=== PATIENT | female | born 1935 | race Hispanic/Latino ===

== ENCOUNTER 2016-12-15 03:46 | Emergency (ER) | payer MEDICARE, BC ==
[2016-12-15 03:56] VITALS: BMI 26.4
[2016-12-15 04:05] VITALS: TEMP 97.6
--- NOTE | 2016-12-15 04:18 | ED PDOC ---
Arrival/HPI - General Chief Complaint: Palpitations Time Seen by Provider: 12/15/16 03:48 Historian: Patient, Family - History of Present Illness Narrative History of Present Illness (Text): 12/15/16 04:15 Vero Aceves is an 81 year old female, whose past medical history includes atrial fibrillation and osteoarthritis, who presents to the Emergency department complaining of chest pressure tonight. Patient states she has began experiencing intermittent chest pressure with associated palpitations while lying in bed. Patient regularly takes Xarelto. Patient also notes frequent urination. Patient denies any fever, chills, shortness of breath, nausea, vomiting, diarrhea, urinary symptoms, back pain, neck pain, headache, dizziness , or any other complaints. PMD: Dr. Prateek Hughes Time/Duration: Other (tonight) Symptom Onset: Gradual Symptom Course: Unchanged Quality: Pressure Activities at Onset: Rest, Light Context: Home Past Medical History - Provider Review Nursing Documentation Reviewed: Yes - Reproductive Menopause: Yes - Cardiac Hx Cardiac Disorders: No Hx Atrial Fibrillation: Yes - Pulmonary Hx Respiratory Disorders: Yes (FLULIKE SYMPTOMS 10-26-16) - Neurological Hx Neurological Disorder: No - HEENT Hx HEENT Disorder: No - Renal Hx Renal Disorder: No - Endocrine/Metabolic Hx Endocrine Disorders: No - Hematological/Oncological Hx Blood Disorders: No - Integumentary Hx Dermatological Disorder: No - Musculoskeletal/Rheumatological Hx Musculoskeletal Disorders: Yes (ORTHOPEDIC SX WHEN SHE WAS 8 YRS OLD.NOTED TO HAVE A LARGE SCAR TO BELOW KN) Hx Falls: Yes Other/Comment: LEFT SHOULDER SX FROM FALL - Gastrointestinal Hx Gastrointestinal Disorders: Yes (APPENDECTOMY,TONSILLECTOMY) - Genitourinary/Gynecological Hx Genitourinary Disorders: No (C/S X 3) - Psychiatric Hx Psychophysiologic Disorder: No Hx Substance Use: No - Surgical History Hx Appendectomy: Yes Hx Section: Yes Hx Orthopedic Surgery: Yes (left leg) Other/Comment: C/S X 3 Family/Social History - Physician Review Nursing Documentation Reviewed: Yes Family/Social History: No Known Family HX Smoking Status: Never Smoked Hx Alcohol Use: No Hx Substance Use: No Allergies/Home Meds Allergies/Adverse Reactions: Allergies No Known Allergies Allergy (Verified 12/15/16 04:01) Home Medications: Home Meds Medication Instructions Recorded Confirmed Diltiazem HCl [Diltiazem ER] 240 mg PO DAILY 12/15/16 12/15/16 Rivaroxaban [Xarelto] 15 mg PO DAILY 12/15/16 12/15/16 Review of Systems - Physician Review All systems were reviewed & negative as marked: Yes - Review of Systems Constitutional: Normal. absent: Fevers Eyes: Normal ENT: Normal Respiratory: Normal. absent: SOB, Cough Cardiovascular: Chest Pain, Palpitations Gastrointestinal: Normal. absent: Abdominal Pain, Diarrhea, Nausea, Vomiting Genitourinary Female: Frequency. absent: Dysuria, Hematuria, Urine Output Changes Musculoskeletal: Normal. absent: Back Pain, Neck Pain Skin: Normal. absent: Rash Neurological: Normal. absent: Headache, Dizziness Endocrine: Normal Hemo/Lymphatic: Normal Psychiatric: Normal Physical Exam Vital Signs Reviewed: Yes Vital Signs Temp Pulse Pulse Resp BP BP Pulse Ox 12/15/16 10:23 98 H 19 115/91 H 98 12/15/16 09:50 89 19 127/83 100 12/15/16 07:53 96 H 12 120/84 97 12/15/16 04:31 98 H 134/84 12/15/16 04:04 97.6 F 12/15/16 03:55 100 H 18 147/102 H 98 Temperature: Afebrile Blood Pressure: Normal Pulse: Regular Respiratory Rate: Normal Appearance: Positive for: Well-Appearing, Non-Toxic, Comfortable Pain Distress: None Mental Status: Positive for: Alert and Oriented X 3 - Systems Exam Head: Present: Atraumatic, Normocephalic Pupils: Present: PERRL Extroacular Muscles: Present: EOMI Conjunctiva: Present: Normal Mouth: Present: Moist Mucous Membranes Neck: Present: Normal Range of Motion Respiratory/Chest: Present: Clear to Auscultation, Good Air Exchange. No: Respiratory Distress, Accessory Muscle Use Cardiovascular: Present: Normal S1, S2, Irregular Rhythm (Irregular, regular). No: Murmurs Abdomen: Present: Normal Bowel Sounds. No: Tenderness, Distention, Peritoneal Signs Back: Present: Normal Inspection Upper Extremity: Present: Normal Inspection. No: Cyanosis, Edema Lower Extremity: Present: Normal Inspection. No: Edema Neurological: Present: GCS=15, CN II-XII Intact, Speech Normal Skin: Present: Warm, Dry, Normal Color. No: Rashes Psychiatric: Present: Alert, Oriented x 3, Normal Insight, Normal Concentration Medical Decision Making ED Course and Treatment: 12/15/16 04:15 Impression: 81 year old female complaining of chest pressure and palpitations tonight. Plan: -- EKG -- Chest X-ray -- Labs, cardiac enzymes -- Reassess and disposition Prior Visits: Notes and results from previous visits were reviewed. On 10/26/2016, pt was seen in the Emergency department for generalized weakness , lack of appetite and persistent cough. Pt was admitted to the hospital for further evaluation. Progress Notes: Reviewed EKG, a fib at 109 bpm. Septal infarct. Non-specific ST/T wave changes. 12/15/16 05:20 Reviewed radiology, Chest X-ray shows no active disease. - Lab Interpretations Lab Results: 12/15/16 04:40 12/15/16 04:40 Lab Results 12/15/16 04:40: WBC 8.3, RBC 4.78, Hgb 13.4, Hct 39.5, MCV 82.6, MCH 28.0, MCHC 33.9, RDW 14.5, Plt Count 300, MPV 9.8, PT 10.8, INR 1.00, APTT 30.2, Sodium 142 , Potassium 3.4 L, Chloride 104, Carbon Dioxide 29, Anion Gap 12, BUN 15, Creatinine 0.6, Est GFR ( Amer) > 60, Est GFR (Non-Af Amer) > 60, Random Glucose 94, Calcium 9.0, Total Bilirubin 0.5, AST 33, ALT 23, Alkaline Phosphatase 94, Lactate Dehydrogenase 461, Total Creatine Kinase 100, Troponin I < 0.01, Total Protein 7.9, Albumin 4.0, Globulin 3.9, Albumin/Globulin Ratio 1.0 L I have reviewed the lab results: Yes - RAD Interpretation Radiology Orders: 12/15/16 04:23 CHEST PORTABLE [RAD] Stat - EKG Interpretation Interpreted by ED Physician: Yes Type: 12 lead EKG - Medication Orders Current Medication Orders: Discontinued Medications Al Hydrox/Mg Hydrox/Simethicone (Maalox Plus 30 Ml) 30 ml PO Q8 PRN PRN Reason: Dyspepsia Diltiazem HCl (Cardizem Cd) 240 mg PO DAILY EDUARD Famotidine (Pepcid) 20 mg IVP STAT STA Stop: 12/15/16 06:45 Last Admin: 12/15/16 07:10 Dose: 20 MG IVP Administration Document 12/15/16 07:10 MR (Rec: 12/15/16 07:11 MR [facility] [place]-[id number]) Charges for Administration # of IVP Administrations 1 Ondansetron HCl (Zofran Inj) 4 mg IVP ONCE ONE Stop: 12/15/16 06:45 Last Admin: 12/15/16 07:11 Dose: 4 MG IVP Administration Document 12/15/16 07:11 MR (Rec: 12/15/16 07:11 MR [facility] [place]-[id number]) Charges for Administration # of IVP Administrations 1 Pantoprazole Sodium (Protonix Ec Tab) 40 mg PO 0630 EDUARD Potassium Chloride (K-Dur 20 Meq Er Tab) 20 meq PO STAT STA Stop: 12/15/16 06:09 Last Admin: 12/15/16 06:30 Dose: 20 MEQ Rivaroxaban (Xarelto) 20 mg PO DAILY EDUARD PRN Reason: Protocol - Scribe Statement The provider has reviewed the documentation as recorded by the Dipesh Valdovinos Provider Attestation: All medical record entries made by the Varunibjuan manuel were at my direction and personally dictated by me. I have reviewed the chart and agree that the record accurately reflects my personal performance of the history, physical exam, medical decision making, and the department course for this patient. I have also personally directed, reviewed, and agree with the discharge instructions and disposition. Disposition/Present on Arrival - Present on Arrival Any Indicators Present on Arrival: No History of DVT/PE: No History of Uncontrolled Diabetes: No Urinary Catheter: No History of Decub. Ulcer: No History Surgical Site Infection Following: None - Disposition Have Diagnosis and Disposition been Completed?: Yes Diagnosis: Chest pain Disposition: HOSPITALIZED Disposition Time: 06:20 Condition: STABLE Discharge Instructions (ExitCare): Chest Pain (ED) Referrals: Daryl Storm MD [Primary Care Provider] -
[2016-12-15 04:55] LABS: HEMATOCRIT 39.5 % (36.0-48.0); MEAN CELL VOLUME 82.6 fL (80.0-105.0); MEAN CORPUSCULAR HGB CONC 33.9 g/dl (31.0-37.0); MEAN PLATELET VOLUME 9.8 fl (7.0-11.0); RED CELL DISTRIBUTION WIDTH 14.5 % (11.5-14.5); WHITE BLOOD COUNT 8.3 10^3/ul (4.5-11.0)
[2016-12-15 05:01] LABS: PARTIAL THROMBOPLASTIN TIME 30.2 Seconds (23.7-30.8)
[2016-12-15 05:08] LABS: ALKALINE PHOSPHATASE 94 U/L (38-133); ALT/SGPT 23 U/L (7-56); AST/SGOT 33 U/L (15-39); BILIRUBIN,TOTAL 0.5 mg/dL (0.2-1.3); BLOOD UREA NITROGEN 15 mg/dL (7-21); CARBON DIOXIDE 29 mmol/L (21-33); CHLORIDE 104 mmol/L (95-110); GFR AFRICAN-AMERICAN > 60; GLUCOSE,RANDOM 94 mg/dL (70-110); POTASSIUM 3.4 mmol/L (3.6-5.0); SODIUM 142 mmol/L (132-148); TOTAL PROTEIN 7.9 g/dL (5.8-8.3)
[2016-12-15 05:27] LABS: TROPONIN I < 0.01 ng/mL
[2016-12-15] MEDS: Potassium Chloride 20 mEq ER Tab PO STA (06:30)
--- NOTE | 2016-12-15 07:12 | RAD ---
HISTORY: chest pain COMPARISON: 10/26/2016 FINDINGS: LUNGS: . No consolidation. . Top-normal perihilar bronchovascular marking. . Thread-like scarring in the right upper lobe suggested PLEURA: No significant pleural effusion identified, no pneumothorax apparent. CARDIOVASCULAR: Normal. OSSEOUS STRUCTURES: Thoracic spondylosis VISUALIZED UPPER ABDOMEN: Normal. OTHER FINDINGS: None. IMPRESSION: No active disease.
[2016-12-15] MEDS ORDERED: Alum-Mag Hydrox-Simethicone Susp (30 mL) PO PRN (08:02)
--- NOTE | 2016-12-15 09:00 | HP ---
HISTORY OF PRESENT ILLNESS: This patient is an 81-year-old woman with past medical history of atrial fibrillation, who presented to [facility] , accompanied by her daughter, for evaluation of 1-day history of epigastric abdominal discomfort, dyspepsia, bloating, and reported chest pressure. The patient states that for the last 3-4 weeks she has been having increasing abdominal discomfort, which she describes as dyspepsia/indigestion, frequent belching, and occasional GERD-like symptoms. The patient states she has never seen a facility maintenance manager in her life despite these ongoing symptoms. On the day of presentation to the Emergency Department the patient states that she awoke from her sleep due to increased epigastric abdominal discomfort associated with diaphoresis, and also reported some chest pressure. The patient denied chest pain per se, palpitations, dyspnea, or fevers associated with her symptoms. By the time she had arrive to the Emergency Department the patient has reported near resolution of her symptoms, and after administration of intravenous Pepcid the patient reported complete resolution of her symptoms. By the time of examination the patient stated that she was completely asymptomatic, and offered no complaints. PAST MEDICAL HISTORY: As per HPI. Also, history of osteoarthritis. PAST SURGICAL HISTORY: Arthroscopy of right shoulder, appendectomy, bilateral catarectomy, fusion of L3-L4, right oophorectomy, bilateral tonsillectomy, and surgical debridement of a left lower extremity wound. ALLERGIES: No known drug allergies. MEDICATIONS: Xarelto 15 mg p.o. b.i.d., diltiazem CD 240 mg p.o. daily. FAMILY HISTORY: Noncontributory. SOCIAL HISTORY: The patient denies any smoking history or history of illicit drug use. She does report social alcohol use consisting of 1-2 glasses of wine per week. REVIEW OF SYSTEMS: A 14-point review of systems is negative, except as per HPI. PHYSICAL EXAMINATION: VITAL SIGNS: Temperature 97.6, pulse 96, blood pressure 120/84, respiratory rate 16, oxygen saturation 97% on room air. GENERAL: Elderly woman appearing her stated age, lying in bed in no apparent distress. HEENT: Normocephalic, atraumatic. PERRL, EOMI, no scleral icterus, no conjunctival pallor. NECK: No JVD, no bruits. LUNGS: Clear to auscultation. CARDIOVASCULAR: Irregularly irregular. Normal S1 and S2. ABDOMEN: Normoactive bowel sounds, soft, nondistended. Mild tenderness to palpation to epigastrium with voluntary guarding. No rigidity, no tympany. EXTREMITIES: No edema. NEUROLOGIC: Awake, alert, and oriented x 3. No focal motor deficits. LABORATORY DATA: CBC reviewed and unremarkable. CMP reviewed and unremarkable , with the exception of potassium of 3.4. Troponin less than 0.01. IMAGING STUDIES: Chest x-ray demonstrates no active disease. DIAGNOSTIC STUDIES: EKG demonstrates atrial fibrillation at 109 beats per minute with nonspecific ST-T wave changes (which is unchanged from prior). ASSESSMENT: The patient is an 81-year-old woman with past medical history of atrial fibrillation, who presented to [facility] for evaluation of a several-day history of abdominal discomfort associated with dyspepsia and GERD -like symptoms, and a 1-day history of reported chest pressure. PLAN: 1. Chest pain, rule out acute coronary syndrome. There is low clinical suspicion for cardiac involvement given the nature of the patient's symptoms. Initial laboratory studies demonstrate an unremarkable troponin level. Dr. Flaherty of cardiology has been consulted for further evaluation and recommendations. Will obtain a second troponin, and if this is negative the patient may likely be discharged to home. However, will clear this with cardiology. 2. Gastroesophageal reflux disease. The patient reported almost immediate improvement status post administration of IV Pepcid. Will start Protonix 40 mg p.o. daily, and Maalox q. 8 hours as needed for dyspepsia. 3. Atrial fibrillation. Continue with diltiazem CD 240 mg p.o. daily, and will change the patient's dose of Xarelto to 20 mg p.o. daily. 4. Prophylaxis. The patient has been started on Protonix for her GERD-like symptoms, thus GI prophylaxis not indicated. The patient remains on Xarelto for her underlying atrial fibrillation, thus DVT prophylaxis not indicated. CODE STATUS: Full Code. Dylan Storm MD cc: [phone] TT: 12/15/2016 08:59:06 jn EUGENE
[2016-12-15 09:51] VITALS: RESP 19
[2016-12-15] MEDS ORDERED: diltiaZEM 240 mg/24 Hours CD Cap PO SCH (10:00)
[2016-12-15 10:24] VITALS: BP 115/91; PULSE 98; O2SAT 98
--- NOTE | 2016-12-15 18:01 | CARD ---
APPROVED REPORT EKG Measurement Heart [id number] <Conclusion> Atrial fibrillation with rapid ventricular response Septal infarct, age undetermined Abnormal ECG
[2016-12-16] MEDS ORDERED: Pantoprazole 40 mg EC Tab PO SCH (06:30)
== END 2016-12-15 10:19 | disposition home or self-care (01) ==
LOC: ED 03:46 → ERH 06:16 → UNDOADMOB 06:16
DX: R07.9 Chest pain, unspecified (principal); I48.91 Unspecified atrial fibrillation; Z79.01 Long term (current) use of anticoagulants
CPT/HCPCS: 71010; 80053; 82550; 83615; 84484; 85027; 85610; 85730; 93005; 96374; 96375; 99285; J2405

== ENCOUNTER 2017-05-07 19:13 | Emergency (ER) | payer MEDICARE, BC ==
[2017-05-07 19:14] VITALS: BMI 27.6
[2017-05-07 19:27] VITALS: TEMP 97.8; O2SAT 99
[2017-05-07] MEDS ORDERED: TraMADol/Apap 37.5/325 mg Tab PO STA (19:53)
--- NOTE | 2017-05-07 20:29 | ED PDOC ---
Arrival/HPI <Kenny Chew - Last Filed: 05/07/17 20:48> - General Historian: Patient, Family <Marshall Sheppard - Last Filed: 05/07/17 22:28> - General Chief Complaint: Lower Extremity Problem/Injury Time Seen by Provider: 05/07/17 19:20 - History of Present Illness Narrative History of Present Illness (Text): 05/07/17 20:14 81 year old female with no past medical history presents to the Emergency Room with a CC of right leg pain. The patient states she noticed some pain yesterday behind her knee upon standing after getting a pedicure. She took two Tylenol and was able to continue throughout the day without too much pain. Today the patient was feeling ok until 3:30pm when she when to stand up after eating dinner and got a sharp shooting pain in the back of her leg. The pain starts behind her knee and radiates up and down her leg. The pain stays on the posterior portion of her leg. She states the pain was so severe that she was unable to stand. She took two Aleve but they did not help with the pain. She pain is minimal when she is laying down, but severe when she attempts to stand or bear any weight on it. She has never had this pain before. She denies any history of trauma or DVTs. Patient states she has no other complaints at this time. Denies f/c, n/v, d/c, sob, cp, dizziness, lightheadedness, vision changes , slurred speech or loss of consciousness. (Marshall Sheppard) Past Medical History - Provider Review Nursing Documentation Reviewed: Yes - Reproductive Menopause: Yes - Cardiac Hx Cardiac Disorders: Yes Hx Atrial Fibrillation: Yes Hx Pacemaker: No - Pulmonary Hx Respiratory Disorders: Yes (FLULIKE SYMPTOMS 10-26-16) - Neurological Hx Neurological Disorder: No - HEENT Hx HEENT Disorder: Yes Hx Cataracts: Yes (sx) - Renal Hx Renal Disorder: No - Endocrine/Metabolic Hx Endocrine Disorders: No - Hematological/Oncological Hx Blood Disorders: No Hx Blood Transfusions: No - Integumentary Hx Dermatological Disorder: No - Musculoskeletal/Rheumatological Hx Musculoskeletal Disorders: Yes (L LEG SX A CHILD) - Gastrointestinal Hx Gastrointestinal Disorders: Yes (APPENDECTOMY,TONSILLECTOMY) Hx Gastroesophageal Reflux: Yes - Genitourinary/Gynecological Hx Genitourinary Disorders: No (C/S X 3) - Psychiatric Hx Psychophysiologic Disorder: No Hx Substance Use: No - Surgical History Hx Appendectomy: Yes Hx Cataract Extraction: Yes Hx Section: Yes Hx Orthopedic Surgery: Yes (left leg) Hx Tonsillectomy: Yes Other/Comment: C/S X 3 - Anesthesia Hx Anesthesia: Yes Hx Anesthesia Reactions: No Hx Malignant Hyperthermia: No <Marshall Sheppard - Last Filed: 05/07/17 22:28> Family/Social History - Physician Review Nursing Documentation Reviewed: Yes Family/Social History: Unknown Family HX Smoking Status: Never Smoked Hx Alcohol Use: No Hx Substance Use: No <Marshall Sheppard - Last Filed: 05/07/17 22:28> Allergies/Home Meds <Kenny Chew - Last Filed: 05/07/17 20:48> <Marshall Sheppard - Last Filed: 05/07/17 22:28> Allergies/Adverse Reactions: Allergies No Known Allergies Allergy (Verified 12/15/16 04:01) Review of Systems - Review of Systems Constitutional: Normal. absent: Fatigue, Fevers Eyes: Normal. absent: Vision Changes ENT: Normal. absent: Sore Throat, Rhinorrhea, Sinus Congestion Respiratory: Normal. absent: SOB, Cough, Wheezing Cardiovascular: Edema (hx of b/l LE edema), Calf Pain. absent: Chest Pain, Palpitations, Orthopnea, Syncope Gastrointestinal: Normal. absent: Abdominal Pain, Constipation, Diarrhea, Nausea, Vomiting Genitourinary Female: Normal. absent: Dysuria, Frequency Musculoskeletal: Normal. absent: Back Pain Skin: Normal. absent: Rash, Pruritis Neurological: Normal. absent: Headache, Dizziness, Disequilibrium Endocrine: absent: Diaphoresis Hemo/Lymphatic: Normal Psychiatric: Normal <Marshall Sheppard - Last Filed: 05/07/17 22:28> Physical Exam Vital Signs Reviewed: Yes Temperature: Afebrile Blood Pressure: Hypertensive Pulse: Regular Respiratory Rate: Normal Appearance: Positive for: Well-Appearing, Non-Toxic, Comfortable Pain Distress: None Mental Status: Positive for: Alert and Oriented X 3 - Systems Exam Head: Present: Atraumatic, Normocephalic Extroacular Muscles: Present: EOMI Conjunctiva: Present: Normal Mouth: Present: Moist Mucous Membranes Nose (External): Present: Atraumatic. No: Abrasion Neck: Present: Normal Range of Motion. No: Meningeal Signs, MIDLINE TENDERNESS , JVD Respiratory/Chest: Present: Clear to Auscultation, Good Air Exchange. No: Respiratory Distress, Accessory Muscle Use, Wheezes, Rhonchi Cardiovascular: Present: Regular Rate and Rhythm, Normal S1, S2 Abdomen: Present: Normal Bowel Sounds. No: Tenderness, Distention, Peritoneal Signs Back: No: Midline Tenderness, Paraspinal Tenderness, Pain with Leg Raise Upper Extremity: Present: Normal Inspection, NORMAL PULSES, Capillary Refill < 2s. No: Edema Lower Extremity: Present: Edema (b/l), CALF TENDERNESS (right calf), NORMAL PULSES (2+ DP/PT pulses b/l), Tenderness, Neurovascularly Intact, Capillary Refill < 2 s. No: Erythema Neurological: Present: GCS=15, Speech Normal, Motor Func Grossly Intact Skin: Present: Warm, Dry, Normal Color. No: Rashes, Diaphoretic Psychiatric: Present: Alert, Oriented x 3, Normal Insight, Normal Concentration <Marshall Sheppard - Last Filed: 05/07/17 22:28> Vital Signs Temp Pulse Resp BP Pulse Ox 05/07/17 21:35 65 17 149/76 99 05/07/17 19:26 97.8 F 63 18 153/74 H 99 Medical Decision Making <Kenny Chew - Last Filed: 05/07/17 20:48> <Marshall Sheppard - Last Filed: 05/07/17 22:28> ED Course and Treatment: 05/07/17 20:49 Pt. seen and evaluated with the medical center director.Agree with HPI,assessment and treatment plan. (Kenny Chew) 05/07/17 20:34 Right Calf pain - r/o DVT - Venous Duplex LE b/l - negative for DVT b/l - Gave patient Ultracet but patient was unable to take pill due to size. Pt refused any pain medicine. - Given Flexeril 10 mg DISPO: Home. Prescriptions for Flexeril and Naprosyn given. Patient is instructed to follow up with her PMD. If symptoms worsen or any new/concerning symptoms arise, please return to the ED. (Marshall Sheppard) - RAD Interpretation Radiology Orders: 05/07/17 19:48 DUPLEX LOWER EXTRM VEIN BILAT [US] Stat - Medication Orders Current Medication Orders: Discontinued Medications Cyclobenzaprine HCl (Flexeril) 10 mg PO STAT STA Stop: 05/07/17 21:40 Last Admin: 05/07/17 22:00 Dose: 10 mg Tramadol/Acetaminophen (Ultracet 37.5/325 Mg) 1 tab PO STAT STA Stop: 05/07/17 19:54 Last Admin: 05/07/17 20:19 Dose: 1 tab Re-Assess: LALO Pain Assessment Document 05/07/17 21:19 SF (Rec: 05/07/17 22:01 SF [facility] [id number]) Pain Reassessment Is this a pain reassessment? Yes Sleep Is patient sleeping during reassessment? No Presence of Pain Presence of Pain Yes - PA / BED AND BREAKFAST COOK / Resident Statement / has reviewed & agrees with the documentation as recorded. / has examined the patient and agrees with the treatment plan. <Kenny Chew - Last Filed: 05/07/17 20:48> Disposition/Present on Arrival <Kenny Chew - Last Filed: 05/07/17 20:48> - Present on Arrival Any Indicators Present on Arrival: No History of DVT/PE: No History of Uncontrolled Diabetes: No Urinary Catheter: No History of Decub. Ulcer: No History Surgical Site Infection Following: None - Disposition Have Diagnosis and Disposition been Completed?: Yes Disposition Time: 21:30 Patient Plan: Discharge <Marshall Sheppard - Last Filed: 05/07/17 22:28> - Disposition Diagnosis: Muscle strain Disposition: HOME/ ROUTINE Condition: GOOD Discharge Instructions (ExitCare): Muscle Strain (ED) Prescriptions: Cyclobenzaprine [Cyclobenzaprine HCl] 10 mg PO TID #15 tab Naproxen [Naprosyn] 500 mg PO Q12 #28 tab Referrals: Dotty LAWSON,Dylan Mcdonald MD [Primary Care Provider] - Follow up with primary Forms: [employer] ([employer])
[2017-05-07 21:46] VITALS: BP 149/76; PULSE 65; RESP 17
--- NOTE | 2017-05-09 08:41 | US ---
HISTORY: Leg pain and swelling. Evaluate for DVT PHYSICIAN(S): Dawson Holt MD. TECHNIQUE: Duplex sonography and color-flow Doppler with graded compression were used to evaluate the deep venous systems of both lower extremities. FINDINGS: The visualized deep venous systems of both lower extremities are sonographically normal and compressible. Normal wave forms and augmentation are seen. There is no sonographic evidence for deep venous thrombosis in the visualized segments of both lower extremities. IMPRESSION: No sonographic evidence for deep venous thrombosis in the visualized segments of both lower extremities.
== END 2017-05-07 19:58 | disposition home or self-care (01) ==
LOC: ED 19:13
DX: S86.911A Strain of unspecified muscle(s) and tendon(s) at lower leg level, right leg, initial encounter (principal); X50.0XXA Overexertion from strenuous movement or load, initial encounter; Y93.89 Activity, other specified; Y92.89 Other specified places as the place of occurrence of the external cause